=== PATIENT | male | born 1970 | race Hispanic/Latino ===

== ENCOUNTER → 2021-10-01 | Outpatient (CLI) | payer OTHER | END | disposition home or self-care (01) | LOC: OIH 08:32 | PROVIDERS: ATTEND Family Medicine | DX: Z13.6 Encounter for screening for cardiovascular disorders (principal) | CPT/HCPCS: 75571 ==

== ENCOUNTER → 2022-12-30 | Outpatient (CLI) | payer BC | END | disposition home or self-care (01) | LOC: RAH 08:27 | PROVIDERS: ATTEND Otolaryngology Plastic Surgery within the Head & Neck | DX: J32.0 Chronic maxillary sinusitis (principal) | CPT/HCPCS: 70486 ==